=== PATIENT | male | born 1950 ===

== ENCOUNTER → 2018-07-21 | Outpatient (CLI) | payer MEDICARE, OTHER ==
[~2018-07-21] MED LIST: AMOX-559 PO; FLUT16SP19
== END ==
LOC: AUD 10:18
PROVIDERS: ATTEND Physician Assistant
DX: H93.19 Tinnitus, unspecified ear (principal); H91.90 Unspecified hearing loss, unspecified ear
CPT/HCPCS: 92557; 92570